=== PATIENT | male | born 1985 | race Two or more races ===

== ENCOUNTER 2018-05-11 14:13 | Emergency (ER) | payer SELFPAY ==
[~2018-05-11] VITALS: Ht 172.7 cm; Wt 83.0 kg
--- NOTE | 2018-05-11 14:33 | NUR ---
Note cherie in EDM - 05/11/18 at 1635 by BRIDGER ATTEMPTED TO COLLECT URINE. PT ONLY RESPONDING TO PAINFUL STIMULI, THEN FALLING BACK ASLEEP. VSS. WILL CONT TO MONITOR.
--- NOTE | 2018-05-11 14:35 | NUR ---
BRENT RA 40 "Homeless was laying near tent friend called. Greenlandic speaking Hyperventilating BS- 102. " PT NOT PROVIDING ANY INFORMATION OR ANSWERING QUESTIONS. NO ACUTE DISTRESS NOTED, SKIN INTACT. READY FOR EVAL.
[2018-05-11 14:48] LABS: BASOPHILS % (AUTO) 0.4 % (0.0-2.0); EOSINOPHILS % (AUTO) 0.2 % (0.0-6.0); HEMATOCRIT 47 % (39-51); HEMOGLOBIN 16.8 g/dL (13.5-17.5); LYMPHOCYTES # (AUTO) 2.3 /CMM (0.8-4.8); LYMPHOCYTES % (AUTO) 21.4 % (20.0-44.0); MEAN CORPUSCULAR HGB CONC 35 g/dl (31.0-36.0); MEAN CORPUSCULAR VOLUME 89 fL (80-96); MONOCYTES % (AUTO) 9.3 % (2.0-12.0); NEUTROPHILS # (AUTO) 7.3 /CMM (1.8-8.9); NEUTROPHILS % (AUTO) 68.7 % (43.0-81.0); PLATELET COUNT (AUTO) 248 /CMM (150-450); RED BLOOD CELL COUNT(AUTO) 5.34 MIL/uL (4.5-6.0); WHITE BLOOD COUNT (AUTO) 10.5 K/uL (4.3-11.0)
--- NOTE | 2018-05-11 14:53 | NUR ---
ATTEMPTED TO COLLECT URINE. PT ONLY RESPONDING TO PAINFUL STIMULI, THEN FALLING BACK ASLEEP. VSS. WILL CONT TO MONITOR.
[2018-05-11 14:58] LABS: CALCIUM, SERUM 10.1 mg/dL (8.5-10.1); CARBON DIOXIDE 21 mmol/L (21-32); CHLORIDE 101 mmol/L (98-107); GLUCOSE 116 mg/dL (74-106); POTASSIUM 3.2 mmol/L (3.5-5.1); SODIUM SERUM 138 mmol/L (136-145); UREA NITROGEN, BLOOD 25 mg/dL (7-18)
[2018-05-11 15:04] LABS: ALANINE AMINOTRANSFERASE 90 U/L (12-78); ALBUMIN 4.5 g/dL (3.4-5.0); ALKALINE PHOSPHATASE 99 U/L (46-116); ASPARTATE AMINOTRANSFERASE 54 U/L (15-37); BILIRUBIN,DIRECT 0.3 mg/dL (0.0-0.2); BILIRUBIN,TOTAL 1.5 mg/dL (0.2-1.0)
[2018-05-11 15:06] LABS: ACETAMINOPHEN < 2 ug/ml (10-30); SALICYLATE < 2.8 mg/dL (2.8-20.0)
[2018-05-11 16:07] LABS: ALCOHOL, BLOOD < 3 mg/dL (0-0)
--- NOTE | 2018-05-11 16:26 | NUR ---
ATTEMPTED TO COLLECT URINE. PT UNABLE TO PROVIDE. DR CLEVELAND SPOKE WITH PT AND LEARNED PT IS MUTE. WILL HOLD URINE COLLECTION AND CONTINUE WITH ER OBSERVATION, PER
[2018-05-11] MEDS ORDERED: OLANZAPINE 10 MG VIAL IM ONE ×2 (17:07→17:30)
--- NOTE | 2018-05-11 17:15 | NUR ---
MEDICATION ADMINISTERED IM. PT COLLEEN GONZALEZ. PROVIDED SIPS OF WATER. Addendum: 05/11/18 at 1729 by CJUWONO CORRECTION: KUSHAL POMPA IN [place]
--- NOTE | 2018-05-11 19:13 | NUR ---
PT SNORING IN BED, VSS. NO COMPLAINTS AT THIS TIME. WILL CONT TO MONITOR
--- NOTE | 2018-05-11 21:48 | NUR ---
PT RESTING COMFORTABLY IN BED, SNORING. NO COMPLAINTS AT THIS TIME. EASILY AROUSED, VSS. WILL CONT TO MONITOR.
[2018-05-11 23:00] LABS: APPEARANCE,URINE Clear (CLEAR); BILIRUBIN,URINE SMALL (NEGATIVE); BLOOD, URINE Large Ery/uL (NEGATIVE); COLOR,URINE Dark (YELLOW); KETONES,URINE >=160 (NEGATIVE); LEUKOCYTE ESTERASE ,URINE Negative (NEGATIVE); NITRITE, URINE Negative (NEGATIVE); PH,URINE 5.5 (5.0-8.0); PROTEIN,URINE 100 mg/dl (NEGATIVE); UGLUCOSE Negative (NEGATIVE); UROBILINOGEN,URINE 0.2 EU/dL (0.2)
--- NOTE | 2018-05-11 23:00 | NUR ---
URINE COLLECTED VIA STRAIGHT CATH AND SENT TO STAT LAB PER MD ORDER
--- NOTE | 2018-05-11 23:06 | NUR ---
Kimi crespo in ED - 05/11/18 at 2306 by BRIDGER PT BACK FROM CT, HOOKED TO MONITOR. WILL CONT TO MONITOR
[2018-05-11 23:18] LABS: RBC,URINE 21-50 /HPF (0-2)
[2018-05-11 23:19] LABS: BACTERIA,URINE None seen /HPF (None Seen); SQUAMOUS EPITHELIAL CELL,UR Moderate /HPF (None Seen); WBC,URINE 0-2 /HPF (0-3)
[2018-05-11 23:20] LABS: MUCUS,URINE Many /LPF (None Seen)
--- NOTE | 2018-05-12 05:02 | NUR ---
PT REQUESTING TO BE DISCHARGED. PT OK TO BE DISCHARGED PER DR BLEVINS. Patient is awake and alert to self, day, and place. PT ambulatory with a steady gait Patient discharged to home in stable condition. Written and verbal after care instructions given. Patient verbalizes understanding of instruction.
[2018-05-12 06:01] VITALS: BP 124/71
== END 2018-05-12 05:02 | disposition home or self-care (01) ==
LOC: EDBD 14:16 → ER 14:16
DX: F19.10 Other psychoactive substance abuse, uncomplicated (principal); Z59.0 Homelessness
CPT/HCPCS: 36415; 80048; 80076; 80305; 80307; 80329; 81001; 85025; 96372; 99283; A4606; G0480; J3490; 81000-TC